=== PATIENT | female | born 1965 | race Caucasian/White ===

== ENCOUNTER 2017-08-29 10:50 | Inpatient (IN) | payer OTHER ==
[~2017-08-29] VITALS: Ht 160 cm; Wt 63.5 kg
--- NOTE | 2017-08-29 11:09 | ED MVC/FALL/TRAUMA COMPLAINT ---
History of Present Illness General Chief Complaint: Laceration Procedure Stated Complaint: BIBA LAC Source: patient Exam Limitations: no limitations Vital Signs & Intake/Output Vital Signs & Intake/Output Vital Signs Date Time Temp Pulse Resp B/P B/P Pulse O2 O2 Flow FiO2 Mean Ox Delivery Rate 08/29 1743 84 18 154/86 99 Room Air 08/29 1446 97.6 80 18 154/77 99 Room Air 08/29 1341 98.0 86 18 180/99 98 Room Air 08/29 1054 96.0 76 15 175/104 100 Room Air Room Air Allergies Coded Allergies: Penicillins (RXN AN 08/29/17) Reconcile Medications Baclofen 10 MG TABLET 1 TAB PO TID muscle aches (Reported) Nitrofurantoin Macrocrystal (Nitrofurantoin) 50 MG CAPSULE 1 CAP PO DAILY prophylaxis uti (Reported) Oxybutynin Chloride 5 MG TABLET 1 TAB PO BID bladder (Reported) Paroxetine HCl 20 MG TABLET 1 TAB PO DAILY mental health (Reported) Triage Note: PT BIBA FROM [place] S/P FALL WITH LAC TO R FOOT AND L FOOT. PT IS PARALYZED FROM CHEST DOWN AND FELL IN SHOWER THIS MORNING. DENIES LOC OR HIT TO HEAD. NEITHER LAC NOTED IN TRIAGE DUE TO EMS DRESSINGS. PT TAKEN TO ROOM 2 FROM TRIAGE. SLIGHTLY HYPERTENSIVE IN TRIAGE. Triage Nurses Notes Reviewed? yes HPI: 52 yo F PMH T1DM, Transverse Myelitis (c/b BLE paralysis, neurogenic bladder) presenting with lacerations s/p fall. Patient was getting out of the shower, transferring to wheelchair, slipped and fell forward onto bilateral knees, helped back into chair by daughter, noted blood coming from bilateral feet, found to have lacerations to ventral surface of right great toe and left 2nd toe , unclear source of laceration. C/O bilateral foot pain, left knee pain, denies head/neck strike, headache, neck pain, N/V, abdominal pain, or focal neurologic Sx. Unknown last tetanus. (Rhiannon SALINAS,Mykel) Past History Travel History Traveled to [place] past 21 day No Medical History Any Pertinent Medical History? 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 Yes (Mykel Jurado MD) Review of Systems Review of Systems Constitutional: Reports: no symptoms. Eyes: Reports: no symptoms. Ears, Nose, Throat, Mouth: Reports: no symptoms. Respiratory: Reports: no symptoms. Cardiovascular: Reports: no symptoms. Gastrointestinal/Abdominal: Reports: no symptoms. Genitourinary: Reports: no symptoms. Musculoskeletal: Reports: see HPI. Skin: Reports: no symptoms. Neurological/Psychological: Reports: no symptoms. All Other Systems: Reviewed and Negative (Mykel Jurado MD) Physical Exam Physical Exam General Appearance: well developed/nourished, no apparent distress, alert, awake Head: atraumatic Eyes: Bilateral: PERRL, EOMI. Ears, Nose, Throat, Mouth: moist mucous membrane Neck: normal inspection, full range of motion, no midline tenderness Respiratory: normal breath sounds, no respiratory distress, lungs clear Cardiovascular: regular rate/rhythm, normal peripheral pulses Gastrointestinal: soft, non-tender Comments: Right Foot: TTP over distal foot/medial toes with ecchymosis, deep curvilinear laceration to ventral surface of right great toe, pain with passive ROM, 2+ DP pulse Left Foot: Superficial laceration to ventral surface of 2nd toe, TTP over great toe, 2+ DP pulse Left Ankle: TTP over left anterior ankle joint Left Knee: Effusion with echymosis, anterior abrasion, TTP and pain with passive ROM Core Measures ACS in differential dx? No CVA/TIA Diagnosis No Sepsis Present: No Sepsis Focused Exam Completed? No (Mykel Jurado MD) Progress Differential Diagnosis: aoritic dissection, abd injury, C/T/L spine injury, ext injury, ICH, pelvis injury, pnemothorax, spinal cord injury Plan of Care: Orders Procedure Date/time Status Consistent Carbohydrate 3 08/30 B Active BASIC ELECTROLYTES PLUS BUN&CR 08/30 0600 Active Intake & Output 08/29 1813 Active ED- NURSING MISC 08/29 1740 Active FingerStick- Glucose 08/29 1718 Active Pathway - chart 08/29 1716 Active Code Status 08/29 1716 Active Patient Data 08/29 1547 Active Admit to inpatient 08/29 1540 Active PROTHROMBIN TIME 08/29 1356 Complete CBC WITHOUT DIFFERENTIAL 08/29 1356 Complete BASIC METABOLIC PANEL 08/29 1356 Complete Current Medications Sig/Mercedes Start time Last Medication Dose Stop Time Status Admin Nitrofurantoin 50 MG DAILY 08/30 0900 AC (Macrodantin 50MG 08/31 0859 Cap) Paroxetine HCl 20 MG DAILY 08/30 0900 AC (Paxil) Insulin Aspart 0 TIDAC 08/30 0800 AC (NovoLOG) Heparin Sodium 5,000 UNIT Q8 08/29 2200 AC (Porcine) Baclofen 10 MG TID 08/29 2100 AC (Lioresal 10MG Tablet) Oxybutynin Chloride 5 MG BID 08/29 2100 AC (Ditropan) Cefazolin Sodium 1,000 MG IQ8 08/29 1600 AC 08/29 (Kefzol-Ancef Inj) 1539 Laboratory Tests 08/29/17 1448: Anion Gap 13, Estimated GFR > 60, BUN/Creatinine Ratio 30.0 H, Glucose 145 H, Calcium 9.1, PT 10.8, INR 0.99, CBC w Diff NO MAN DIFF REQ, RBC 4.20, MCV 86.4, MCH 28.7, MCHC 33.2, RDW 14.6 H, MPV 8.1, Gran % 75.9 H, Lymphocytes % 18.6 L , Monocytes % 4.8, Eosinophils % 0.5, Basophils % 0.2, Absolute Granulocytes 7.6 H, Absolute Lymphocytes 1.9, Absolute Monocytes 0.5, Absolute Eosinophils 0.1, Absolute Basophils 0 Physician MDM: 52 yo F PMH T1DM, Transverse Myelitis (c/b BLE paralysis, neurogenic bladder) presenting with lacerations s/p fall. VSS, trauma exam as above. DDx: Laceration, Tendon injury, Toe Fracture, Knee ligamentous injury, Knee fracture. I suspect that these lacerations are the result of hyperextension of the toes with splitting of the skin. I will obtain XRs to assess for fracture , anesthetize and explore the wound to assess for tendinous injury, as the patient has paraplegia and I cannot preform a motor exam. The patient states that she has reduced sensation in her lower extremties, but does feel some pain. Tdap given. Right foot XR with " Mildly displaced comminuted fracture involving the mid to distal first right metatarsal, Nondisplaced fracture involving the metadiaphysis, proximal aspect, of the proximal phalanx of the great toe." Given large laceration, with deep extension and concern for open fracture, discussed with Dr. Maria (Podaitry), willing to evaluate patient this evening and explore wound, possible wash out in OR, recommended ancef q8hrs, admission. Left foot XR with "irregularity of the medial and lateral cortices of the distal first metatarsal and proximal phalanx", Dr. Maria aware. Left Knee XR with "Oblique fracture in the upper tibial diaphysis which is suspected to extend into the metaphysis and possibly to the articular surface of the knee joint. Suprapatellar joint effusion." Discussed with Dr. Metz, reccomended posterior leg splint, surgical PA evaluation. Discussed wt surgical PA, requested left knee immobilizer, will evaluate this evening. Admit for IV abx pending podiatry and orthopedics evaluation. (Rhiannon SALINAS,Mykel) Departure Departure Disposition: STILL A PATIENT Condition: Stable Clinical Impression Primary Impression: Bilateral great toe fractures Secondary Impressions: Left tibial fracture Departure Forms: Customer Survey General Discharge Information Admission Note Spoke With: Shamika SALINAS,Cheikh Documentation of Exam: Documentation of any treatments & extenuating circumstances including Concerns Regarding Discharge (functional status, medication knowledge or non-compliance, living conditions, etc.) that warrant an admission rather than observation: [ Patient presents with multiple fractures of bilateral LE s/p fall with open right 1st phalanx fracture, she requires admission to the hospital for ongoing antibiotics, podiatry consult, orthopedics consultm, PT/OT evaluationand disposition planning, if discharged without appropriate care the patient would likely have progressive displacement of fractures and developement of infection site leading to significant morbidity and possibly ] (Rhiannon SALINAS,Mykel) PA/ELECTROPLATING TECHNICIAN Co-Sign Statement Statement: ED Attending supervision documentation- [] I saw and evaluated the patient. I have also reviewed all the pertinent lab results and diagnostic results. I agree with the findings and the plan of care as documented in the PA's/ELECTROPLATING TECHNICIAN's documentation. [] I have reviewed the ED Record and agree with the PA's/ELECTROPLATING TECHNICIAN's documentation. [] Additions or exceptions (if any) to the PAs/ELECTROPLATING TECHNICIAN's note and plan are summarized below: [] Resident Co-Sign Statement Statement: ED Attending supervision documentation- I saw and evaluated the patient. I have also reviewed all the pertinent lab results and diagnostic results. I agree with the findings and the plan of care as documented in the Resident's documentation. x I have reviewed the ED Record and agree with the Resident's documentation. [] Additions or exceptions (if any) to the Resident's note and plan are summarized below: [] (Rachelle SALINAS,Brad)
--- NOTE | 2017-08-29 13:55 | RADIOLOGY REPORT ---
EXAMINATION: XR LEFT ANKLE XR LEFT FOOT CLINICAL INFORMATION: Fall and pain. Assess for fracture. The patient is paraplegic. COMPARISON: None. TECHNIQUE: AP, lateral and mortise views of the left ankle were obtained. AP, lateral and oblique views of the left foot were obtained. FINDINGS: Left ankle: There is normal alignment of the osseous structures. No fractures are demonstrated. The mortise of ankle joint is maintained. Bone mineralization is diffusely decreased. There is moderate soft tissue swelling along the lateral aspect of the distal lower extremity and ankle. There are no radiodense foreign bodies. Left foot: There is irregularity of the distal shaft of the first metatarsal medially and laterally,, with similarly irregularity of the proximal aspect of the proximal phalanx of the great toe. There is associated soft tissue swelling around the MP region of the first and second toes. These findings are consistent with minimally displaced fractures. There are no definite other fractures. The bones are diffusely osteopenic. Elsewhere, there is normal alignment of the osseous structures. There are no radiodense foreign bodies. IMPRESSION: 1. There is soft tissue swelling along the lateral aspect of the ankle. No acute ankle fractures are demonstrated. 2. There is irregularity of the medial and lateral cortices of the distal first metatarsal and proximal phalanx of the great toe as described above, consistent with minimally displaced fractures. 3. Bone mineralization is diffusely decreased; the patient is paraplegic.
--- NOTE | 2017-08-29 14:21 | RADIOLOGY REPORT ---
EXAMINATION: XR FOOT, RIGHT CLINICAL INFORMATION: Injury COMPARISON: None TECHNIQUE: AP, lateral, and oblique views of the right foot. FINDINGS: Diffuse osteopenia limits assessment for nondisplaced fracture. There is a mildly comminuted displaced fracture involving the mid to distal first metatarsal of the right foot. There is no definite extension of the fracture line to the articular surface. Motion on the lateral view limits assessment. There are several cortical discontinuity is at the base of the proximal phalanx of the great toe suspicious for nondisplaced fracture. This is at the level of the proximal metadiaphysis. The distal phalanx appears intact on the provided views. No other fractures identified. IMPRESSION: 1. Challenging examination secondary to diffuse osteopenia. 2. Mildly displaced comminuted fracture involving the mid to distal first right metatarsal. 2. Nondisplaced fracture involving the metadiaphysis, proximal aspect, of the proximal phalanx of the great toe.
--- NOTE | 2017-08-29 14:22 | RADIOLOGY REPORT ---
EXAMINATION: XR KNEE, LEFT CLINICAL INFORMATION: Pain after fall. COMPARISON: None TECHNIQUE: Four views of the left knee. FINDINGS: There is a lucency in the upper diaphyseal portion of the tibia which is suspected to represent a nondisplaced fracture. There is also some angulation at the diametaphyseal junction medially. It is indeterminate as to whether this fracture extends to the articular surface as well superiorly. No dislocation is seen. There is mild medial compartment joint space narrowing. A suprapatellar joint effusion is visible. There is bony demineralization. IMPRESSION: Oblique fracture in the upper tibial diaphysis which is suspected to extend into the metaphysis and possibly to the articular surface of the knee joint. Suprapatellar joint effusion. Generalized bony demineralization. A CT scan of the knee is recommended in follow-up to better characterize these findings.
[2017-08-29 14:57] LABS: ABSOLUTE BASOPHIL COUNT 0 /CUMM (0.0-0.2); ABSOLUTE EOSINOPHIL COUNT 0.1 /CUMM (0.0-0.7); ABSOLUTE GRANULOCYTE CT 7.6 /CUMM (1.4-6.5); ABSOLUTE LYMPH COUNT 1.9 /CUMM (1.2-3.4); ABSOLUTE MONOCYTE COUNT 0.5 /CUMM (0.10-0.60); BASOPHIL % 0.2 % (0.0-2.0); EOSINOPHIL % 0.5 % (0-5); GRANULOCYTE % 75.9 % (42.2-75.2); HEMATOCRIT 36.3 % (37-47); MEAN CORPUSCULAR HGB 28.7 PG (27.0-31.0); MEAN CORPUSCULAR HGB CONC 33.2 G/DL (33.0-37.0); MEAN CORPUSCULAR VOLUME 86.4 FL (81.0-99.0); MEAN PLATELET VOLUME 8.1 FL (7.4-10.4); PLATELET COUNT 378 /CUMM (130-400); RBC DISTRIBUTION WIDTH 14.6 % (11.5-14.5)
[2017-08-29 15:04] LABS: PT 10.8 SEC (9.4-12.5)
--- NOTE | 2017-08-29 16:29 | History & Physical ---
Attila SALINAS,[facility] 08/29/17 1628: General Information and HPI MD Statement: I have seen and personally examined DANIELLE ALVAREZ and documented this H&P. The patient is a 52 year old F who presented with a patient stated chief complaint of [fall]. 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 She presented to [facility] with a complaint of fall. The patient is visiting [place] from [place] with her daughter for [employer]. The patient has a power chair which she usually uses to ambulate. She went to take a shower and was transferred herself from power chair to the shower bench. She is followed and handed off on her knees and hands in the shower. Her daughter came out to help her. she felt Mild pain in her left knee. The patient daughter noticed her feet for bleeding especially the right one. Patient thought her feet might have gotten tangled in foot rest of wheelchair hence resulted in bleeding she did not feel any pain. Of note patient has history of transverse mellitus. And has decreased sensation bilaterally. Respiratory mechanical. She did not have any loss of consciousness. She did not hit her head. She denies any prodromal symptoms of nausea, palpitations chest pain or shortness of breath. There was no fecal or urinary incontinence. There was no seizure-like activity. Of note patient is on incontinent at baseline. She uses self-catheterization to empty her bladder and suppositories for stool. 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 Home Who Do You Live With? spouse, child Primary Language: Korean Smoking Status: Former Smoker ETOH Use: denies use Illicit Drug Use: denies illicit drug use Review of Systems Review of Systems Constitutional: Reports: see HPI. Exam & Diagnostic Data Last 24 Hrs of Vital Signs/I&O Vital Signs Date Time Temp Pulse Resp B/P B/P Pulse O2 O2 Flow FiO2 Mean Ox Delivery Rate 08/29 1934 98.0 93 18 160/88 100 Room Air 08/29 1743 84 18 154/86 99 Room Air 08/29 1446 97.6 80 18 154/77 99 Room Air 08/29 1341 98.0 86 18 180/99 98 Room Air 08/29 1054 96.0 76 15 175/104 100 Room Air Room Air Intake & Output 08/29 1600 08/29 0800 08/29 0000 Intake Total Output Total Balance Patient 140 lb Weight Weight Estimated Measurement Method Physical Exam General Appearance Alert, Oriented X3, Cooperative Cardiovascular Normal S1, Normal S2 Lungs Clear to Auscultation, Normal Air Movement Abdomen Normal Bowel Sounds, Soft, No Tenderness Neurological Normal Speech Extremities R foot wrappe din bandage Body Front and Back (Adult) 1) 2) swelling Last 24 Hrs of Labs/Estevan: Laboratory Tests 08/29/17 1448: Anion Gap 13, Estimated GFR > 60, BUN/Creatinine Ratio 30.0 H, Glucose 145 H, Calcium 9.1, PT 10.8, INR 0.99, CBC w Diff NO MAN DIFF REQ, RBC 4.20, MCV 86.4, MCH 28.7, MCHC 33.2, RDW 14.6 H, MPV 8.1, Gran % 75.9 H, Lymphocytes % 18.6 L , Monocytes % 4.8, Eosinophils % 0.5, Basophils % 0.2, Absolute Granulocytes 7.6 H, Absolute Lymphocytes 1.9, Absolute Monocytes 0.5, Absolute Eosinophils 0.1, Absolute Basophils 0 Diagnostic Data Other Results XR KNEE, LEFT Oblique fracture in the upper tibial diaphysis which is suspected to extend into the metaphysis and possibly to the articular surface of the knee joint. Suprapatellar joint effusion. Generalized bony demineralization. A CT scan of the knee is recommended in follow-up to better characterize these findings XR LEFT ANKLE XR LEFT FOOT IMPRESSION: 1. There is soft tissue swelling along the lateral aspect of the ankle. No acute ankle fractures are demonstrated. 2. There is irregularity of the medial and lateral cortices of the distal first metatarsal and proximal phalanx of the great toe as described above, consistent with minimally displaced fractures. 3. Bone mineralization is diffusely decreased; the patient is paraplegic. XR FOOT, RIGHT IMPRESSION: 1. Challenging examination secondary to diffuse osteopenia. 2. Mildly displaced comminuted fracture involving the mid to distal first right metatarsal. 2. Nondisplaced fracture involving the metadiaphysis, proximal aspect, of the proximal phalanx of the great toe. 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 She presented to [facility] 09/16 with a complaint of fall. Vitals, within normal limits except elevated blood pressure CBC and BMP unremarkable Imaging finding positive for following fractures 1.Nondisplaced fracture involving the metadiaphysis, proximal aspect, of the proximal phalanx of the R great toe. 2.Mildly displaced comminuted fracture involving the mid to distal first right metatarsal. 3.There is irregularity of the medial and lateral cortices of the distal first metatarsal and proximal phalanx of the L great toe as described above, consistent with minimally displaced fractures. 4.Oblique fracture in the L upper tibial diaphysis which is suspected to extend into the metaphysis and possibly to the articular surface of the knee joint. 5.Suprapatellar joint effusion The patient is being admitted to general medicine floor and was being treated and evaluated for above-mentioned fractured -Admit to general medicine floor -Vitals every shift -Adequate analgesia -Podiatry consult -Ortho Consult -Case has been discussed with Dr. Maria bottom worker he will be taking her OR on Thursday for a washout and closure. -IV antibiotics -Ortho. This is most likely going to recommend conservative management however we'll place an official consult, for follow-up after discharge as well #Continue home medications baclofen, Paxil, nitrofurantoin (chronically on to prevent UTIs), oxybutynin #DM, Pt is on insulin pump, we will hold for now and start patient on insulin sliding scale -Endo consult #Full Code/consistent carbohydrate diet/subcutaneous heparin for DVT prophylaxis alps will not be ordered in setting of fracture As Ranked By This Provider Problem List: 1. Left tibial fracture Core Measures/Misc (12/14) Acute Coronary Syndrome ACS Diagnosis: No Congestive Heart Failure Congestive Heart Failure Diagnosis No Cerebrovascular Accident CVA/TIA Diagnosis: No VTE (View Protocol) VTE Risk Factors Age>40 No Mechanical VTE Prophylaxis d/t Medical Contraindication No VTE Pharm Prophylaxis d/t NA PharmProphylax ordered Sepsis (View protocol) Sepsis Present: Yes If YES complete Sepsis Event Note If YES complete Sepsis Event Note Natalie Morton 08/29/17 1647: Core Measures/Misc (12/14) Sepsis (View protocol) If YES complete Sepsis Event Note If YES complete Sepsis Event Note Resident Review Statement Resident Statement: discussed with underwriting intern, agreed with underwriting intern Other Findings: Patient is a 52 year old female with PMH T1DM, Transverse Myelitis (c/b BLE paralysis, neurogenic bladder) who came with lacerations after a fall. Patient states that she fell forward while she was getting out of the shower into her wheelchair when she noted blood coming out of her right great toe. She had right foot x-ray which was significant for fracture of right big toe, her left knee x-ray is significant for oblique tibial fracture and her left ankle x-ray is significant for iregularity of the medial and lateral cortices of the distal first metatarsal and proximal phalanx of the great toe. She will be admitted to general medicine floor for possible surgery of her right big toe later today by Dr. Maria, we will keep her n.p.o. for the surgery, give her cefazolin 1000 mg every 8 per podiatry's recommendations. For her diabetes, will start her on NovoLog insulin low-dose scale, and obtain fingersticks. The plan is that patient will be discharged tomorrow. With follow-up orthopedics recommendation. DVT prophylaxis with subcutaneous heparin as patient cannot get ALPS. Patient is full code. WuYao ballard 08/29/17 1657: General Information and HPI Allergies/Medications Home Med list Baclofen 10 MG TABLET 1 TAB PO TID muscle aches (Reported) Insulin Aspart (Novolog) 100 UNIT/ML VIAL 0 SC DAILY DM (Reported) VIA INSULIN PUMP Nitrofurantoin Macrocrystal (Nitrofurantoin) 50 MG CAPSULE 1 CAP PO DAILY prophylaxis uti (Reported) Oxybutynin Chloride 5 MG TABLET 1 TAB PO BID bladder (Reported) Paroxetine HCl 20 MG TABLET 1 TAB PO DAILY mental health (Reported) Core Measures/Misc (12/14) Sepsis (View protocol) If YES complete Sepsis Event Note If YES complete Sepsis Event Note Attending MD Review Statement Attending Statement Attending MD Statement: examined this patient, discuss w/resident/PA/LIBRARY CIRCULATION DEPARTMENT CHIEF, agreed w/resident/PA/LIBRARY CIRCULATION DEPARTMENT CHIEF, reviewed EMR data (avail) Attending Assessment/Plan: 52 yr old female with pmf of transverse myelitis in 1987 and paraplegic secondary to that and wheel chair bound presented to the ER after a fall while getting from the wheel chair into the shower. Pt found to have fracture of rt first metatarsal, Fracture of the proximal phalynx of the great toe and left tibial fracture. Orhto recommending conservative treatment for tibial fracutre with knee immobilizer. Podiatry taking her to OR on thursday for repair of the laceration to the feet and washout of the wounds. d/w pt and Dr Maria the care plan.
[2017-08-29] MEDS ORDERED: PAROXETINE HCL20 M1 PO (16:35)
[2017-08-29] MEDS ORDERED: BACLOFEN10 M1 PO (16:35)
[2017-08-29] MEDS ORDERED: NITROFURANTOIN50 M1 PO (16:35)
[2017-08-29] MEDS ORDERED: OXYBUTYNIN CHLOR5 M2 PO (16:35)
--- NOTE | 2017-08-29 16:56 | Admission Certification ---
Admission Certification Certification Statement - As attending physician, I certify that at the time of - admission, based on clinical presentation, severity of - symptoms, need for further diagnostic testing and - therapeutic interventions, and risk of adverse outcomes - without in-hospital treatment, in my clinical assessment, - this patient requires an acute hospital stay for a minimum - of two nights or longer. I have also considered psychsocial - factors such as support system, advanced age, financial - issues, cognitive issues, and failed out-patient treatments, - past re-admission history, safety of patient, and lack of - compliance as applicable. Specific rationale supporting this admission is: fall with tibial fracture and metatarsal and distal phalynx fracture of the great toe.
--- NOTE | 2017-08-29 17:40 | Cons- Podiatry ---
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 Patient was noted to have a laceration to her right foot and also complaining of left knee and ankle pain. Allergies/Medications Allergies: Coded Allergies: Penicillins (RXN AN 08/29/17) Home Med List: Baclofen 10 MG TABLET 1 TAB PO TID muscle aches (Reported) Nitrofurantoin Macrocrystal (Nitrofurantoin) 50 MG CAPSULE 1 CAP PO DAILY prophylaxis uti (Reported) Oxybutynin Chloride 5 MG TABLET 1 TAB PO BID bladder (Reported) Paroxetine HCl 20 MG TABLET 1 TAB PO DAILY mental health (Reported) Past History Medical History Neurological: PARALYZED FROM CHEST DOWN Renal: URINARY RETENTION NEUROGENIC BOWEL & BLADDE Musculoskeletal: TRANSVERSE MIOLYTIS Endocrine: DIABETES TYPE 1 Blood Disorders: NONE Cancer(s): NONE 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 Surgical History Pertinent Surgical History: 1 Psychosocial History ETOH Use: denies use Illicit Drug Use: denies illicit drug use Review of Systems Review of Systems: Unremarkable except for that noted in history present illness Exam & Diagnostic Data Vital Signs and I&O Vital Signs Date Time Temp Pulse Resp B/P B/P Pulse O2 O2 Flow FiO2 Mean Ox Delivery Rate 08/29 1446 97.6 80 18 154/77 99 Room Air 08/29 1341 98.0 86 18 180/99 98 Room Air 08/29 1054 96.0 76 15 175/104 100 Room Air Room Air Intake & Output 08/29 1600 08/29 0800 08/29 0000 08/28 1600 08/28 0800 08/28 0000 Intake Total Output Total Balance Patient 140 lb Weight Weight Estimated Measurement Method Physical Exam: Edema and ecchymosis noted about the right foot. There is a transversely oriented laceration to the plantar sulcus of the first metatarsophalangeal joint. No obvious contaminants or debris identified within the wound bed. Unable to visualize the flexor hallucis longus tendon, however given the patient 's motor deficit its difficult to assess the integrity of the tendon. Superficial laceration noted at the plantar sulcus of the second metatarsophalangeal joint left foot. Patient is noted to have deficits involving both the sensory motor functions to bilateral lower extremities. X- rays demonstrate fracture of the first metatarsal head right and a transversely oriented fracture through the base of the proximal phalanx of the right great toe. Tibial fracture also noted on x-ray, which is to be managed by the orthopedic service. Assessment/Plan Assessment/Plan Open digital fracture right great toe. Recommend IV antibiotics while on the floor. Discussed options with the patient at bedside and agreed to take the patient to the OR on Thursday for a washout and closure. Consult Acknowledgment - Thank you for your consult request. Attending MD Review Statement Attending Statement Attending MD Statement: examined this patient
--- NOTE | 2017-08-29 18:20 | Cons- Orthopedic ---
General Information and HPI Consulting Request Date of Consult: 08/29/17 Requested By: Yao Wu MD Reason for Consult: Proximal tibia fracture Source of Information: patient Exam Limitations: no limitations History of Present Illness: Patient is a 52 year old female with PMH T1DM, Transverse Myelitis (c/b BLE paralysis, neurogenic bladder) who came with lacerations after a fall. Patient states that she fell forward while she was getting out of the shower into her wheelchair when she noted blood coming out of her right great toe. She had right foot x-ray which was significant for fracture of right big toe, her left knee x-ray is significant for oblique tibial fracture and her left ankle x-ray is significant for iregularity of the medial and lateral cortices of the distal first metatarsal and proximal phalanx of the great toe. Allergies/Medications Allergies: Coded Allergies: Penicillins (RXN AN INFANT 08/29/17) Home Med List: Baclofen 10 MG TABLET 1 TAB PO TID muscle aches (Reported) Nitrofurantoin Macrocrystal (Nitrofurantoin) 50 MG CAPSULE 1 CAP PO DAILY prophylaxis uti (Reported) Oxybutynin Chloride 5 MG TABLET 1 TAB PO BID bladder (Reported) Paroxetine HCl 20 MG TABLET 1 TAB PO DAILY mental health (Reported) Past History Medical History Neurological: PARALYZED FROM CHEST DOWN Renal: URINARY RETENTION NEUROGENIC BOWEL & BLADDE Musculoskeletal: TRANSVERSE MIOLYTIS Endocrine: DIABETES TYPE 1 Blood Disorders: NONE Cancer(s): NONE 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 Surgical History Pertinent Surgical History: 1 Psychosocial History ETOH Use: denies use Illicit Drug Use: denies illicit drug use Exam & Diagnostic Data Vital Signs and I&O Vital Signs Date Time Temp Pulse Resp B/P B/P Pulse O2 O2 Flow FiO2 Mean Ox Delivery Rate 08/29 1743 84 18 154/86 99 Room Air 08/29 1446 97.6 80 18 154/77 99 Room Air 08/29 1341 98.0 86 18 180/99 98 Room Air 08/29 1054 96.0 76 15 175/104 100 Room Air Room Air Intake & Output 08/29 1600 08/29 0800 08/29 0000 06/ 1600 08/28 0800 08/28 0000 Intake Total Output Total Balance Patient 140 lb Weight Weight Estimated Measurement Method Physical Exam: Left lower extremity: Positive left knee effusion Left calf compartments soft Distal sensation intact, No deformity noted Assessment/Plan Assessment/Plan Ms. Mccallum is a 52-year-old female, status post fall at a home in the area were she was visiting from [place], sustained an open fracture to her right foot and left proximal tibia fracture. She will be taken to the operating room by podiatry for her right foot injuries. Her left proximal tibia will be placed in a knee immobilizer at this time. She should not have knee flexion, and should be nonweightbearing on this left limb. Ice to left knee and proximal left tibia should help with swelling and pain. The patient states she will be leaving back to [place] which is her home tomorrow, and there she should follow-up with an orthopedic surgeon with in the week for follow-up x-rays. No surgical intervention for the left proximal tibia is necessary at this time. This case was discussed with Dr. Metz who is aware and is in agreement. Orthopedic concerns while here at [facility] should be directed to Dr. Metz at [facility] Consult Acknowledgment - Thank you for your consult request.
[2017-08-29 19:34] VITALS: BP 160/88
--- NOTE | 2017-08-29 21:44 | Event Note ---
Event Note Event Note: S: Patient was admitted to general medicine floor without being advised to take off the insulin pump. Patient was eating outside food brought in by her family for dinner, due to Cafe was closed for service. Patient was concerned regarding switching her usual insulin pump regimen as she was allowed to do so in previous hospitalization. Patient was never seen here in [place] as she was visiting from [place]. B: The patient is 52-year-old female with 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 She presented to [facility] ED 09/16 with a complaint of fall. Imaging finding positive for following fractures 1.Nondisplaced fracture involving the metadiaphysis, proximal aspect, of the proximal phalanx of the R great toe. 2.Mildly displaced comminuted fracture involving the mid to distal first right metatarsal. 3.There is irregularity of the medial and lateral cortices of the distal first metatarsal and proximal phalanx of the L great toe as described above, consistent with minimally displaced fractures. 4.Oblique fracture in the L upper tibial diaphysis which is suspected to extend into the metaphysis and possibly to the articular surface of the knee joint. 5.Suprapatellar joint effusion A/R: Housestaffs were notified and have a detailed discussion regarding the necessarity of discontinuing the home insulin pump and hospital policy of using inpatient insulin sliding scale/AccuChek to have precise control of blood sugar. Patient's concern was addressed and agreed to discontinue home insulin pump and be compliant with inpatient insulin sliding scale/accuchek. Patient's medication list was also reconciliated to make sure all her other home meds was given as scheduled. - As a T1DM patient pending OR on thursday, patient would need an Endocrinology consult for sugar control. Continuous Improvement Facilitator psychological operations specialist was contacted and pending call-back. - FSG [phone] was [phone]. Patient has not got her insulin pump bolus after dinner ( outside food). 10:01 PM The patient confirmed that she takes 29 units of basal insulin/per 24 hours, and boluses accordingly. Discussed with Dr. Wilson and started her on Levemir 15 units twice a day, with the first dose to be given right now. Also gave her a corrective insulin of 3 units NovoLog, since she did not get her insulin at dinnertime. discussed with the patient about the change in insulin regimen, and she agrees. Recheck blood glucose in 2 hours. Also a separate insulin sliding scale was written, as per Dr. Wilson's recommendation. Explained to the patient, that she cannot keep her insulin pump on while she is in the hospital, which can be a safety issue. Discussed it with the nurse was taking care of the patient, and informed her about the insulin dosing changes.
[2017-08-29 22:20] VITALS: BP 160/85
[2017-08-30 06:54] VITALS: BP 110/55
--- NOTE | 2017-08-30 08:43 | PN- Housestaff ---
See Addendum Subjective Follow-up For: FAll Multiple fractures Subjective: Patient is seen and examined. Resting comfortably. Overnight there was an ongoing problem with an insulin pump however patient has agreed to be on hospital regimen. She will be nothing by mouth tonight for anticipated procedure in the morning with Dr. Maria Review of Systems Constitutional: Reports: see HPI. Objective Last 24 Hrs of Vital Signs/I&O Vital Signs Date Time Temp Pulse Resp B/P B/P Pulse O2 O2 Flow FiO2 Mean Ox Delivery Rate 08/30 0654 99.4 100 18 110/55 98 Room Air 08/29 2220 98.1 92 20 160/85 100 Room Air 06/ 1934 98.0 93 18 160/88 100 Room Air 08/29 1743 84 18 154/86 99 Room Air / 1446 97.6 80 18 154/77 99 Room Air / 1341 98.0 86 18 180/99 98 Room Air Intake & Output 08/30 1600 08/30 0800 08/30 0000 Intake Total 510 490 Output Total 1200 Balance 510 -710 Intake, IV 30 10 Intake, Oral 480 480 Number 0 0 Bowel Movements Output, Urine 1200 Patient 140 lb Weight Physical Exam General Appearance: Alert, Oriented X3, Cooperative Other Physical Findings: Cardiovascular Normal S1, Normal S2 Lungs Clear to Auscultation, Normal Air Movement Abdomen Normal Bowel Sounds, Soft, No Tenderness Neurological Normal Speech Extremities R foot wrappe din bandage Current Medications: Current Medications Sig/Mercedes Start time Last Medication Dose Route Stop Time Status Admin Acetaminophen 650 MG ONCE ONE 08/30 0530 DC 08/30 PO 08/30 0531 0540 Acetaminophen 0 .STK-MED ONE 08/29 1346 DC PO Acetaminophen 975 MG ONCE ONE 08/29 1345 DC 08/29 PO 08/29 1346 1348 Baclofen 10 MG 4 TIMES/DAY 08/30 0900 AC 08/30 PO 0855 Baclofen 10 MG ONCE ONE 08/29 2200 DC 08/29 PO 08/29 2201 2149 Baclofen 10 MG TID 08/29 2100 DC PO Bisacodyl 10 MG DAILY PRN 08/29 2200 AC 08/30 RI 0807 Cefazolin Sodium 1,000 MG IQ8 08/29 1600 AC 08/30 IV 0801 Cefazolin Sodium 0 .STK-MED ONE 08/29 1539 DC .ROUTE Heparin Sodium 5,000 UNIT Q8 08/29 2200 AC 08/29 (Porcine) SC 2149 Insulin Aspart 0 TIDAC 08/30 0800 CAN SC Insulin Aspart 0 TIDAC 08/30 0800 AC 08/30 SC 0854 Insulin Aspart 4 UNITS ONCE ONE 08/29 2345 DC 08/30 SC 08/29 2346 0036 Insulin Aspart 3 UNITS ONCE ONE 08/29 2215 DC 08/29 SC 08/29 2216 2254 Insulin Detemir 15 UNITS BID 08/30 0900 AC 08/30 SC 0854 Insulin Detemir 15 UNITS ONCE ONE 08/29 2215 DC 08/29 SC 08/29 2216 2255 Nitrofurantoin 50 MG DAILY 08/30 899 CAN PO 08/31 0859 Oxybutynin Chloride 5 MG 4 TIMES/DAY 08/30 0900 AC 08/30 PO 0854 Oxybutynin Chloride 5 MG ONCE ONE 08/29 2145 DC 08/29 PO 08/29 214 2149 Oxybutynin Chloride 5 MG BID 08/29 2100 DC PO Paroxetine HCl 20 MG DAILY 08/30 0900 DC PO Paroxetine HCl 10 MG QPM 08/29 2145 AC 08/29 PO 2150 Tetanus/Diphtheria 0 .STK-MED ONE 08/29 1346 DC Toxoids Adsorbed IM Last 24 Hrs of Lab/Estevan Results Last 24 Hrs of Labs/Mics: Laboratory Tests 08/30/17 0740: Anion Gap 8, Estimated GFR > 60, BUN/Creatinine Ratio 25.0 08/29/17 1448: Anion Gap 13, Estimated GFR > 60, BUN/Creatinine Ratio 30.0 H, Glucose 145 H, Calcium 9.1, PT 10.8, INR 0.99, CBC w Diff NO MAN DIFF REQ, RBC 4.20, MCV 86.4, MCH 28.7, MCHC 33.2, RDW 14.6 H, MPV 8.1, Gran % 75.9 H, Lymphocytes % 18.6 L , Monocytes % 4.8, Eosinophils % 0.5, Basophils % 0.2, Absolute Granulocytes 7.6 H, Absolute Lymphocytes 1.9, Absolute Monocytes 0.5, Absolute Eosinophils 0.1, Absolute Basophils 0 Assessment/Plan Assessment: The patient is 52-year-old female with 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 She presented to [facility] ED 09/16 with a complaint of fall. Vitals, within normal limits except elevated blood pressure CBC and BMP unremarkable Imaging finding positive for following fractures 1.Nondisplaced fracture involving the metadiaphysis, proximal aspect, of the proximal phalanx of the R great toe. 2.Mildly displaced comminuted fracture involving the mid to distal first right metatarsal. 3.There is irregularity of the medial and lateral cortices of the distal first metatarsal and proximal phalanx of the L great toe as described above, consistent with minimally displaced fractures. 4.Oblique fracture in the L upper tibial diaphysis which is suspected to extend into the metaphysis and possibly to the articular surface of the knee joint. 5.Suprapatellar joint effusion The patient is being admitted to general medicine floor and was being treated and evaluated for above-mentioned fractured -Vitals every shift hemodynamically stable overnight -Adequate analgesia, pain well controlled -OR on Thursday for a washout and closure. -IV antibiotics -Ortho recommend conservative management follow-up after discharge #DM, Pt is on insulin pump. Endocrinology has been consulted Patient is going to be started on the recommended regimen. She will be nothing by mouth at midnight we will run fluids and scale as per Endo #Continue home medications baclofen, Paxil, nitrofurantoin (chronically on to prevent UTIs), oxybutynin #Full Code/consistent carbohydrate diet/subcutaneous heparin for DVT prophylaxis alps will not be ordered in setting of fracture Problem List: 1. Left tibial fracture 2. Bilateral great toe fractures Pain Ratin Pain Location: fracture site Pain Goal: Pain 4 or less Pain Plan: n/a Tomorrow's Labs & Rationales: will get post op labs
--- NOTE | 2017-08-30 09:02 | Cons- Endocrinology ---
General Information and HPI Consulting Request Date of Consult: 08/30/17 Requested By: medical team Reason for Consult: uncontrolled DM type 1 Source of Information: patient Exam Limitations: no limitations History of Present Illness: This 52-year-old woman has a known history of diabetes mellitus type 1 since childhood. She was here she states on a vacation. In the hotel room when she was transferring from her wheelchair to shower bench she fell and injured her legs. She was noted to have some bleeding from the right foot. She was taken to the emergency room. The patient has been found to have a fracture of the tibia as well as bilateral fractures of the great toe in her feet. She is going to be taken to the operating room tomorrow by Dr. Maria to have foot surgery and closure of the wound on her right foot. The patient's diabetes is managed on an insulin pump. She uses the Omni pod. Her total basal is 29 units daily. She states her last hemoglobin A1c was about 8.0%. X-rays of her bones show diffuse osteopenia secondary to her paralysis and nonweightbearing. The patient has a history of transverse myelitis with paralysis of both legs and neurogenic bladder. Allergies/Medications Allergies: Coded Allergies: Penicillins (RXN AN 08/29/17) Home Med List: Baclofen 10 MG TABLET 1 TAB PO TID muscle aches (Reported) Nitrofurantoin Macrocrystal (Nitrofurantoin) 50 MG CAPSULE 1 CAP PO DAILY prophylaxis uti (Reported) Oxybutynin Chloride 5 MG TABLET 1 TAB PO BID bladder (Reported) Paroxetine HCl 20 MG TABLET 1 TAB PO DAILY mental health (Reported) Current Medications: Current Medications Sig/Mercedes Start time Last Medication Dose Route Stop Time Status Admin Acetaminophen 650 MG ONCE ONE 08/30 0530 DC 08/30 PO 08/30 0531 0540 Acetaminophen 0 .STK-MED ONE 08/29 1346 DC PO Acetaminophen 975 MG ONCE ONE 08/29 1345 DC 08/29 PO 08/29 1346 1348 Baclofen 10 MG 4 TIMES/DAY 08/30 0900 AC 08/30 PO 0855 Baclofen 10 MG ONCE ONE 08/29 2200 DC 08/29 PO 08/29 2201 2149 Baclofen 10 MG TID 08/29 2100 DC PO Bisacodyl 10 MG DAILY PRN 08/29 2200 AC 08/30 CA 0807 Cefazolin Sodium 1,000 MG IQ8 06/02 1600 AC 06 IV 0801 Cefazolin Sodium 0 .STK-MED ONE 06 1539 DC .ROUTE Heparin Sodium 5,000 UNIT Q8 / 2200 AC 08/29 (Porcine) SC 2149 Insulin Aspart 0 TIDAC 08/30 0800 CAN SC Insulin Aspart 0 TIDAC 08/30 0800 AC 08/30 SC 0854 Insulin Aspart 4 UNITS ONCE ONE 08/29 2345 DC 08/30 SC / 2346 0036 Insulin Aspart 3 UNITS ONCE ONE 08/29 2215 DC 06/ SC / 2216 2254 Insulin Detemir 15 UNITS BID 08/30 0900 AC 08/30 SC 0854 Insulin Detemir 15 UNITS ONCE ONE 08/29 2215 DC / SC 08/29 2216 2255 Lidocaine 0 .STK-MED ONE 08/29 1114 DC .ROUTE Nitrofurantoin 50 MG DAILY 08/30 0900 CAN PO 08/31 0859 Oxybutynin Chloride 5 MG 4 TIMES/DAY 08/30 0900 AC 08/30 PO 0854 Oxybutynin Chloride 5 MG ONCE ONE 08/29 2145 DC 06/ PO / 2146 2149 Oxybutynin Chloride 5 MG BID / 2100 DC PO Paroxetine HCl 20 MG DAILY 08/30 0900 DC PO Paroxetine HCl 10 MG QPM 08/29 2145 AC 06/ PO 2150 Tetanus/Diphtheria 0 .STK-MED ONE 08/29 1346 DC Toxoids Adsorbed IM Tetanus/Diphtheria 0.5 ML ONCE ONE 08/29 1130 DC 08/29 Toxoids Adsorbed IM 08/29 1131 1348 Review of Systems Review of Systems Constitutional: Denies: chills, fever. Cardiovascular: Denies: chest pain. Respiratory: Denies: short of breath. GI: Denies: nausea, vomiting. 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 Home Who Do You Live With? spouse, child Services at Home: None Primary Language: Kazakh Smoking Status: Former Smoker ETOH Use: denies use Illicit Drug Use: denies illicit drug use Exam & Diagnostic Data Last 24 Hrs of Vital Signs/I&O Vital Signs Date Time Temp Pulse Resp B/P B/P Pulse O2 O2 Flow FiO2 Mean Ox Delivery Rate 08/30 0654 99.4 100 18 110/55 98 Room Air 06/ 2220 98.1 92 20 160/85 100 Room Air 06/ 1934 98.0 93 18 160/88 100 Room Air / 1743 84 18 154/86 99 Room Air 06/ 1446 97.6 80 18 154/77 99 Room Air 06/ 1341 98.0 86 18 180/99 98 Room Air / 1054 96.0 76 15 175/104 100 Room Air Room Air Intake & Output 08/30 1600 08/30 0800 06/ 0000 Intake Total 510 490 Output Total 1200 Balance 510 -710 Intake, IV 30 10 Intake, Oral 480 480 Number 0 0 Bowel Movements Output, Urine 1200 Patient 140 lb Weight Vital Signs Date Time Temp Pulse Resp B/P B/P Pulse O2 O2 Flow FiO2 Mean Ox Delivery Rate 08/30 0654 99.4 100 18 110/55 98 Room Air 06/02 2220 98.1 92 20 160/85 100 Room Air 06/02 1934 98.0 93 18 160/88 100 Room Air / 1743 84 18 154/86 99 Room Air / 1446 97.6 80 18 154/77 99 Room Air / 1341 98.0 86 18 180/99 98 Room Air / 1054 96.0 76 15 175/104 100 Room Air Room Air Intake & Output 08/30 1600 /03 0800 06/03 0000 Intake Total 510 490 Output Total 1200 Balance 510 -710 Intake, IV 30 10 Intake, Oral 480 480 Number 0 0 Bowel Movements Output, Urine 1200 Patient 140 lb Weight Physical Exam General Appearance: alert, awake, comfortable Head: normal appearance Eyes: Bilateral: normal appearance. Neck: normal inspection Respiratory: normal breath sounds Cardiovascular: regular rate/rhythm Gastrointestinal: normal bowel sounds, soft Extremities: normal inspection Labs/Estevan Results: Laboratory Tests 08/30 08/29 0740 1448 Chemistry Sodium (137 - 145 mmol/L) 137 141 Potassium (3.5 - 5.1 mmol/L) 4.6 3.7 Chloride (98 - 107 mmol/L) 103 101 Carbon Dioxide (22 - 30 mmol/L) 26 28 Anion Gap (5 - 16) 8 13 BUN (7 - 17 mg/dL) 15 18 H Creatinine (0.5 - 1.0 mg/dL) 0.6 0.6 Estimated GFR (>60 ml/min) > 60 > 60 BUN/Creatinine Ratio (7 - 25 %) 25.0 30.0 H Glucose (65 - 99 mg/dL) 145 H Calcium (8.4 - 10.2 mg/dL) 9.1 Coagulation PT (9.4 - 12.5 SEC) 10.8 INR (0.90 - 1.19) 0.99 Hematology CBC w Diff NO MAN DIFF REQ WBC (4.8 - 10.8 /CUMM) 10.0 RBC (4.20 - 5.40 /CUMM) 4.20 Hgb (12.0 - 16.0 G/DL) 12.0 Hct (37 - 47 %) 36.3 L MCV (81.0 - 99.0 FL) 86.4 MCH (27.0 - 31.0 PG) 28.7 MCHC (33.0 - 37.0 G/DL) 33.2 RDW (11.5 - 14.5 %) 14.6 H Plt Count (130 - 400 /CUMM) 378 MPV (7.4 - 10.4 FL) 8.1 Gran % (42.2 - 75.2 %) 75.9 H Lymphocytes % (20.5 - 51.1 %) 18.6 L Monocytes % (1.7 - 9.3 %) 4.8 Eosinophils % (0 - 5 %) 0.5 Basophils % (0.0 - 2.0 %) 0.2 Absolute Granulocytes (1.4 - 6.5 /CUMM) 7.6 H Absolute Lymphocytes (1.2 - 3.4 /CUMM) 1.9 Absolute Monocytes (0.10 - 0.60 /CUMM) 0.5 Absolute Eosinophils (0.0 - 0.7 /CUMM) 0.1 Absolute Basophils (0.0 - 0.2 /CUMM) 0 Assessment/Plan Assessment/Plan This 52-year-old woman has a known history of diabetes mellitus type 1 since childhood. She is on the Omni pod i nsulin pump. According to hospital policy we need to transition her to subcu insulin. I spoke with the resident last night and since her basal on the pump is 29 units we began Levemir 15 units twice a day. We also placed her on sliding scale NovoLog before meals. I would continue the Levemir as written and also the present sliding scale NovoLog before meals.. We can also add a separate sliding scale at bedtime. Sliding scale NovoLog at bedtime should be less than 250 give no insulin, 251- 300 give 2 units NovoLog, 301-350 give 3 units NovoLog, 351-400 give 4 units NovoLog. Since the patient will be n.p.o. for surgery tomorrow we can begin D5 half- normal saline at midnight at 75 cc/h. At midnight we can also place the patient on sliding scale NovoLog every 4 hours for sugars above 150. Sliding scale NovoLog while the patient is n.p.o. should be less than 150 give no insulin, 151 -200 give 2 units NovoLog, 201-250 give 3 units NovoLog, 251-300 give 4 units NovoLog, 301-350 give 5 units NovoLog, 351-400 give 6 units NovoLog. I would reduce the patient's morning dose of Levemir tomorrow morning to 8 units while n.p.o. When the patient is eating again we should place her back on her usuall mealtime insulin schedule well as the bedtime sliding scale NovoLog and Levemir 15 units twice a day Consult Acknowledgment - Thank you for your consult request.
[2017-08-30 14:49] VITALS: BP 128/70
[2017-08-30 21:44] VITALS: BP 122/54
[2017-08-31 07:00] VITALS: BP 132/73
--- NOTE | 2017-08-31 07:30 | PN- Diabetes ---
See Addendum Assessment/Plan Diabetes Assessment: The patient feels anxious before surgery. She is presently n.p.o. and on D5 half-normal saline at 75 cc/h. Her Levemir dose has been reduced to 8 units last night and she will be covered with NovoLog insulin every 4 hours today for sugars above 150 while n.p.o. Her fingerstick blood sugar this morning is 123. Plan: Suggest continue the present insulin regimen. When the patient is eating again she should be placed back on her full dose of Levemir which is 15 units twice a day as well as the previous sliding scale before meals with a separate sliding scale at bedtime. Subjective Subjective: Feels anxious Review of Systems Constitutional: Denies: chills, fever. Cardiovascular: Denies: chest pain. Respiratory: Denies: short of breath. Gastrointestinal: Denies: abdominal pain, nausea, vomiting. Objective Last 24 Hrs of Vital Signs/I&O Vital Signs Date Time Temp Pulse Resp B/P B/P Pulse O2 O2 Flow FiO2 Mean Ox Delivery Rate 08/31 2143 98.4 83 20 122/54 96 Room Air 08/30 1449 98.1 98 18 128/70 99 Room Air Intake & Output 08/31 0808/31 0000 08/30 1600 Intake Total 800 Output Total 200 500 700 Balance -200 -500 100 Intake, Oral 800 Output, Urine 200 500 700 Vital Signs Date Time Temp Pulse Resp B/P B/P Pulse O2 O2 Flow FiO2 Mean Ox Delivery Rate 08/31 2143 98.4 83 20 122/54 96 Room Air 08/30 1449 98.1 98 18 128/70 99 Room Air Intake & Output 08/31 0808/31 0000 08/30 1600 Intake Total 800 Output Total 200 500 700 Balance -200 -500 100 Intake, Oral 800 Output, Urine 200 500 700 Physical Exam General Appearance: alert, awake, comfortable Head: normal appearance Neck: normal inspection Cardiovascular: regular rate/rhythm Extremities: normal inspection Current Medications: Current Medications Sig/Mercedes Start time Last Medication Dose Route Stop Time Status Admin Acetaminophen 1,000 MG ONCE ONE 08/30 1300 DC N/A 1 UNIT IV 08/30 1314 Acetaminophen 650 MG Q4P PRN 08/30 1300 AC 08/30 PO 2027 Baclofen 10 MG 4 TIMES/DAY 08/30 0900 AC 08/30 PO 2028 Bisacodyl 10 MG DAILY PRN 06/ 2200 AC 06 DC 0807 Cefazolin Sodium 1,000 MG IQ8 06/02 1600 AC 06 IV 0044 Dextrose/Sodium 1,000 ML Q13H 06/ 0000 AC 06/ Chloride IV 06/ 1259 0047 Heparin Sodium 5,000 UNIT Q8 / 2200 AC 08/29 (Porcine) NC 214 Insulin Aspart 0 Q4 / 0200 08/31 NC 0131 Insulin Aspart 0 TIDAC 08/30 1800 DC 08/30 NC 08/30 2355 1749 Insulin Aspart 0 TIDAC/HS 08/30 1700 DC NC 08/30 2300 Insulin Aspart 0 TIDAC 08/30 0800 DC 08/30 NC 08/30 2300 1227 Insulin Detemir 8 UNITS ONCE ONE 08/31 0800 [facility] 08/31 0801 Insulin Detemir 15 UNITS BID 08/30 0900 FL 08/30 NC 08/30 2300 202 Oxybutynin Chloride 5 MG 4 TIMES/DAY / 0900 AC 08/30 PO 2027 Paroxetine HCl 10 MG QPM 06/ 2145 AC 08/30 PO 202 Current Medications Sig/Mercedes Start time Last Medication Dose Route Stop Time Status Admin Acetaminophen 1,000 MG ONCE ONE 08/30 1300 DC N/A 1 UNIT IV 08/30 1314 Acetaminophen 650 MG Q4P PRN 06/03 1300 AC 08/30 PO 202 Baclofen 10 MG 4 TIMES/DAY / 0900 AC 08/30 PO 202 Bisacodyl 10 MG DAILY PRN 06 2200 AC 08/30 DC 0807 Cefazolin Sodium 1,000 MG IQ8 06/02 1600 AC 06/04 IV 0044 Dextrose/Sodium 1,000 ML Q13H 06/ 0000 AC / Chloride IV / 1259 0047 Heparin Sodium 5,000 UNIT Q8 08/29 2200 08/29 (Porcine) NC 214 Insulin Aspart 0 Q4 06/04 0200 08/31 NC 0131 Insulin Aspart 0 TIDAC / 1800 DC 08/30 NC 08/30 2355 1749 Insulin Aspart 0 TIDAC/HS /03 1700 [facility] 08/30 2300 Insulin Aspart 0 TIDAC 08/30 0800 DC 08/30 NC 08/30 2300 1227 Insulin Detemir 8 UNITS ONCE ONE 08/31 08 AC NC 08/31 08 Insulin Detemir 15 UNITS BID 08/30 09 DC 08/30 NC 08/30 Oxybutynin Chloride 5 MG 4 TIMES/DAY 08/30 899 AC 08/30 PO 2027 Paroxetine HCl 10 MG QPM 08/29 2144 AC 08/30 PO 2027 Findings Pertinent Lab/Est[place]an Results: Laboratory Tests 08/30 08/29 0740 1448 Chemistry Sodium (137 - 145 mmol/L) 137 141 Potassium (3.5 - 5.1 mmol/L) 4.6 3.7 Chloride (98 - 107 mmol/L) 103 101 Carbon Dioxide (22 - 30 mmol/L) 26 28 Anion Gap (5 - 16) 8 13 BUN (7 - 17 mg/dL) 15 18 H Creatinine (0.5 - 1.0 mg/dL) 0.6 0.6 Estimated GFR (>60 ml/min) > 60 > 60 BUN/Creatinine Ratio (7 - 25 %) 25.0 30.0 H Glucose (65 - 99 mg/dL) 145 H Calcium (8.4 - 10.2 mg/dL) 9.1 Coagulation PT (9.4 - 12.5 SEC) 10.8 INR (0.90 - 1.19) 0.99 Hematology CBC w Diff NO MAN DIFF REQ WBC (4.8 - 10.8 /CUMM) 10.0 RBC (4.20 - 5.40 /CUMM) 4.20 Hgb (12.0 - 16.0 G/DL) 12.0 Hct (37 - 47 %) 36.3 L MCV (81.0 - 99.0 FL) 86.4 MCH (27.0 - 31.0 PG) 28.7 MCHC (33.0 - 37.0 G/DL) 33.2 RDW (11.5 - 14.5 %) 14.6 H Plt Count (130 - 400 /CUMM) 378 MPV (7.4 - 10.4 FL) 8.1 Gran % (42.2 - 75.2 %) 75.9 H Lymphocytes % (20.5 - 51.1 %) 18.6 L Monocytes % (1.7 - 9.3 %) 4.8 Eosinophils % (0 - 5 %) 0.5 Basophils % (0.0 - 2.0 %) 0.2 Absolute Granulocytes (1.4 - 6.5 /CUMM) 7.6 H Absolute Lymphocytes (1.2 - 3.4 /CUMM) 1.9 Absolute Monocytes (0.10 - 0.60 /CUMM) 0.5 Absolute Eosinophils (0.0 - 0.7 /CUMM) 0.1 Absolute Basophils (0.0 - 0.2 /CUMM) 0
--- NOTE | 2017-08-31 08:58 | PN- Housestaff ---
Attila SALINAS,Yue 08/31/17 0858: Subjective Follow-up For: FAll Multiple fractures Subjective: Seen and examined. Anxious to be discharged home after the surgery. Patient's spouse as a physical therapist. They were offered PT evaluation however they declined and they're going to follow-up with the primary care doctor Review of Systems Constitutional: Reports: see HPI. Objective Last 24 Hrs of Vital Signs/I&O Vital Signs Date Time Temp Pulse Resp B/P B/P Pulse O2 O2 Flow FiO2 Mean Ox Delivery Rate 08/31 1311 98.0 78 18 122/68 100 Room Air Room Air / 1008 98.5 91 18 148/78 98 Room Air Room Air / 0700 98.2 86 20 132/73 99 Room Air / 2144 98.4 83 20 122/54 96 Room Air Intake & Output 08/31 1600 /04 0800 / 0000 Intake Total 1100 600 Output Total 400 200 500 Balance 700 400 -500 Intake, IV 300 600 Intake, Oral 800 Number 1 Bowel Movements Output, Urine 400 200 500 Physical Exam General Appearance: Alert, Oriented X3, Cooperative Cardiovascular: Regular Rate, Normal S1, Normal S2 Lungs: Clear to Auscultation, Normal Air Movement Abdomen: Normal Bowel Sounds, Soft, No Tenderness Neurological: Normal Speech Other Physical Findings: B?L feet wrapped in bandage Current Medications: Current Medications Sig/Mercedes Start time Last Medication Dose Route Stop Time Status Admin Acetaminophen 650 MG Q4P PRN 06/03 1300 DCD 06/03 PO 2028 Baclofen 10 MG 4 TIMES/DAY 06/ 0900 DCD 06 PO 1314 Bisacodyl 10 MG DAILY PRN 0602 2200 DCD 06 MD 0807 Cefazolin Sodium 1,000 MG IQ8 06/02 1600 DCD 06/04 IV 0748 Dextrose/Sodium 1,000 ML Q13H 06/04 0000 DC 06/04 Chloride IV 06/ 0159 0047 Heparin Sodium 5,000 UNIT Q8 06/ 2200 DCD 06 (Porcine) SC 1315 Insulin Aspart 0 TIDAC 06/ 1700 DC SC Insulin Aspart 0 TIDAC/HS / 1700 DCD SC Insulin Aspart 0 Q4 /04 0200 DC 08/31 SC 1012 Insulin Aspart 0 TIDAC 08/30 1800 DC 08/30 SC 08/30 2355 1749 Insulin Detemir 15 UNITS BID 08/31 2100 DC AK Insulin Detemir 13 UNITS BID 08/31 2100 DCD SC Insulin Detemir 8 UNITS ONCE ONE 08/31 0800 DC AK 08/31 0801 Insulin Detemir 15 UNITS BID 08/30 0900 GA 08/30 AK 08/30 2300 2028 Oxybutynin Chloride 5 MG 4 TIMES/DAY 08/30 0900 GAD 08/31 PO 131 Paroxetine HCl 10 MG QPM 08/29 2144 DC 08/30 PO 2027 Assessment/Plan Assessment: The patient is 52-year-old female with 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 She presented to [place] ED 09/16 with a complaint of fall. Vitals, within normal limits except elevated blood pressure CBC and BMP unremarkable Imaging finding positive for following fractures 1.Nondisplaced fracture involving the metadiaphysis, proximal aspect, of the proximal phalanx of the R great toe. 2.Mildly displaced comminuted fracture involving the mid to distal first right metatarsal. 3.There is irregularity of the medial and lateral cortices of the distal first metatarsal and proximal phalanx of the L great toe as described above, consistent with minimally displaced fractures. 4.Oblique fracture in the L upper tibial diaphysis which is suspected to extend into the metaphysis and possibly to the articular surface of the knee joint. 5.Suprapatellar joint effusion The patient wasadmitted to general medicine floor and was being treated and evaluated for above-mentioned fractured -Vitals every shift hemodynamically stable overnight -Adequate analgesia, pain well controlled -OR planned for today washout and closure. -IV antibiotics -Ortho recommend conservative management follow-up after discharge -Patient's spouse as a physical therapist. They were offered PT evaluation however they declined and they're going to follow-up with the primary care doctor, she will require Podaitry and Ortho follow up after discharge #DM, Pt is on insulin pump. She was maintained on insulin regimen as per recommendations. At discharge she can continue her #Continue home medications baclofen, Paxil, nitrofurantoin (chronically on to prevent UTIs), oxybutynin #Full Code/consistent carbohydrate diet/subcutaneous heparin for DVT prophylaxis alps will not be ordered in setting of fracture Problem List: 1. Bilateral great toe fractures 2. Left tibial fracture Pain Ratin Pain Location: as stated Pain Goal: Pain 4 or less Pain Plan: prn Tomorrow's Labs & Rationales: none Erika Wick MDcorriestorm 08/31/17 1420: Attending MD Review Statement Attending Statement Attending Statement: examined this patient, discuss w/resident/PA/CONTROL SUPERVISOR, agreed w/resident/PA/CONTROL SUPERVISOR, reviewed EMR data (avail), discussed with nursing, discussed with case mgmt, amended to note Attending Assessment/Plan: Patient wishes to return home today. She wishes to return back to [place]. She was taken to the OR by the podiatry service for incision and drainage of an open fracture to the right first metatarsal phalangeal joint. Procedure was completed with no reported complications. Postoperatively she is not complaining of any significant pain. On examination she does have swelling of the left knee. No open area over the knee. She does have bilateral intact dressings over the feet. She will be following up with orthopedic and podiatry service in [place]. Patient declined to be evaluated by the physical therapy service here at [facility]. Her spouse is a physical therapist and she will be following up with her primary care provider for initiation of formal physical therapy service when she gets back to the [facility]. She may resume her insulin pump once she gets home.
[2017-08-31 10:08] VITALS: BP 148/78
--- NOTE | 2017-08-31 10:43 | Patient Discharge Instructions ---
Discharge Instructions General Discharge Information You were seen/treated for: Nondisplaced fracture right great toe Mildly displaced comminuted fracture first right metatarsal Minimally displaced fracture left great toe Oblique fracture in the L upper tibial diaphysis You had these procedures: 1 open incision and drainage deep to the deep fascia with exposure of the flexor tendon and tendon sheath multiple sites right foot 2 closure of open laceration plantar right foot Special Instructions: -Please follow-up with your primary care after discharge -Please follow-up with the foot doctor after discharge. -Please keep dressing of Right foot intact until you see your primary care doctor. -The dressing on the left foot can come off after 1 week -Please follow-up with an orthopedic doctor after discharge in regards of tibial fracture. For now it should be conservatively managed, and should heal by itself -Please follow-up with your configuration developer after discharge -You have declined physical therapy evaluation and recommendations at this point , please follow-up with your primary care doctor for further assistance Diet Recommended Diet: Diabetic Activity Activity Self Limited: Yes Acute Coronary Syndrome Inclusion Criteria At DC or during hospital stay patient has or had the following: ACS DIAGNOSIS No Discharge Core Measures Meds if any: Prescribed or Continued at Discharge Meds if any: NOT Prescribed or Continued at Discharge Congestive Heart Failure Inclusion Criteria At DC or during hospital stay patient has or had the following: CHF DIAGNOSIS No Discharge Core Measures Meds if any: Prescribed or Continued at Discharge Meds if any: NOT Prescribed or Continued at Discharge Cerebrovascular accident Inclusion Criteria At DC or during hospital stay patient has or had the following: CVA/TIA Diagnosis No Discharge Core Measures Meds if any: Prescribed or Continued at Discharge Meds if any: NOT Prescribed or Continued at Discharge Venous thromboembolism Inclusion Criteria VTE Diagnosis No VTE Type NONE VTE Confirmed by (Test) NONE Discharge Core Measures - Per Current guidelines, there needs to be overlap - treatment for the first 5 days of Warfarin therapy. - If discharged on Warfarin prior to 5 days of - overlap therapy, the patient will need to be - assessed for post discharge needs including - *Post discharge parental anticoagulation - *Warfarin and/or parental anticoagulation education - *Follow up date to check INR post discharge At least 5 days overlap therapy as Inpatient No Meds if any: Prescribed or Continued at Discharge Note: Overlap Therapy is Warfarin and Anticoagulant Meds if any: NOT Prescribed or Continued at Discharge
[2017-08-31] MEDS ORDERED: NOVOLOG100 UNIT/2 SC (10:45)
--- NOTE | 2017-08-31 12:03 | Discharge Summary ---
Visit Information Visit Dates Admission Date: 08/29/17 Discharge Date: 08/31/2017 Hospital Course Course Attending Physician: Cheikh Wick MD Primary Care Physician: Unknown Hospital Course: The patient is 52-year-old female with past medical history of transverse colitis, Allergies: Coded Allergies: Penicillins (RXN AN 08/29/17) Discharge Instructions Medications at Discharge Discharge Medications: Continue taking these medications: Oxybutynin Chloride (Oxybutynin Chloride) 5 MG TABLET 1 Tablet ORAL TWICE DAILY Qty = 120 Comments: Last Taken: 08/31/17 Time: 1:15 PM Baclofen (Baclofen) 10 MG TABLET 1 Tablet ORAL THREE TIMES DAILY Qty = 120 Comments: Last Taken: 08/31/17 Time: 1:15 PM Nitrofurantoin Macrocrystal (Nitrofurantoin) 50 MG CAPSULE 1 Capsule ORAL DAILY Qty = 90 Comments: NOT GIVEN IN HOSPITAL Paroxetine HCl (Paroxetine HCl) 20 MG TABLET 1 Tablet ORAL DAILY Qty = 60 Comments: NOT GIVEN IN HOSPTIAL Insulin Aspart (Novolog) 100 UNIT/ML VIAL 0 Inject into fatty tissue DAILY Qty = 1 Instructions: VIA INSULIN PUMP Attending MD Review Statement Documenting Attending: Cheikh Wick MD Other Findings: Patient to follow-up with a podiatry and orthopedic service in [place]. She has been advised to seek medical attention immediately if she develops increasing swelling of the left knee, or worsening pain. She will be following up with her primary care provider for initiation of physical therapy services
--- NOTE | 2017-08-31 12:55 | Operative Report ---
Operative/Inv Procedure Report Surgery Date: 08/31/17 Name of Procedure: 1 open incision and drainage deep to the deep fascia with exposure of the flexor tendon and tendon sheath multiple sites right foot 2 closure of open laceration plantar right foot 3 intraoperative administration of ankle block anesthesia Pre-Operative Diagnosis: 1 open fracture right first metatarsophalangeal joint Post-Operative Diagnosis: The same Estimated Blood Loss: less than 50ml Surgeon/Rpg Programmer: AGUSTIN REILLY DPM Anesthesia: moderate sedation, block Operative/Procedure Note Note: After obtaining informed consent the patient was brought to the operating room and placed on the operating table in the supine position. The patient was then securely fastened to the operating table utilizing safety belt. After administration of IV sedation, 10 mL of 0.5% Marcaine plain was infiltrated about the patient's right ankle. The right foot and ankle within scrubbed prepped and draped in usual aseptic manner. Attention directed plantar aspect the right foot, where a laceration at the sulcus of the first metatarsal phalangeal joint was identified. The open wound was noted to involve the metatarsophalangeal joint. The flexor hallucis longus tendon was identified and noted to be intact. The wound edges were sharply revised with a 15 blade. The open wound was then curetted of any nonviable tissue or debris. The dissection was then carried down deep to the D fashion with exposure of the flexor tendon and tendon sheath multiple sites, both proximally and distally. All necrotic nonviable infected tissue sharply evacuated from the wound bed. The open wound was then irrigated with 3 L of normal sterile saline infusion 50,000 units of bacitracin. Next, the foot was redraped and the surgeon's top gloves were changed clean gloves. Any bleeding vessels identified were cauterized or ligated as encountered. The deep tissues were then mobilized with undermining, and advancement adjacent tissues. Centrally, the flap was held 3-0 Vicryl. Skin edges were then reapproximated with 3-0 nylon. Incision was dressed with Xeroform, 4 x 4's, Kerlix and an Abhay wrap. The patient was noted tolerate both procedure and anesthesia well and the patient was transported from the operating room to recovery via signs stable and fascia status intact to the plantar flap.
[2017-08-31 13:11] VITALS: BP 122/68
== END 2017-08-31 15:35 | DRG 501 ==
LOC: ERH 10:50 → 2NB 15:40 → ERHI 15:40 → ENRESERV 16:56 → ENTRNSPT 17:46 → EDTRNSPT 18:03 → EDTRNSPTSTS 18:20 → 2NB 18:31 → CMPTRNSPT 18:42 → 2NB 08-31 08:11 → ENTRNSPT 08-31 12:28 → EDTRNSPTSTS 08-31 12:48 → EDTRNSPT 08-31 12:48 → CMPTRNSPT 08-31 13:07 → 2NB 08-31 15:35
PROVIDERS: Student in an Organized Health Care Education/Training Program
PROC: 0YQP0ZZ Repair Right 1st Toe, Open Approach (ICD-10-PCS; principal; 2017-08-31)
PROC: 0J9Q0ZZ Drainage of Right Foot Subcutaneous Tissue and Fascia, Open Approach (ICD-10-PCS; 2017-08-31)
DX: S92.311B Displaced fracture of first metatarsal bone, right foot, initial encounter for open fracture (principal); G37.3 Acute transverse myelitis in demyelinating disease of central nervous system; K59.2 Neurogenic bowel, not elsewhere classified; S82.142A Displaced bicondylar fracture of left tibia, initial encounter for closed fracture; Z79.4 Long term (current) use of insulin; Z96.41 Presence of insulin pump (external) (internal); W18.39XA Other fall on same level, initial encounter; Y93.E1 Activity, personal bathing and showering; N31.9 Neuromuscular dysfunction of bladder, unspecified; E10.319 Type 1 diabetes mellitus with unspecified diabetic retinopathy without macular edema; S92.402A Displaced unspecified fracture of left great toe, initial encounter for closed fracture; Z99.3 Dependence on wheelchair; G83.89 Other specified paralytic syndromes; M25.462 Effusion, left knee; M85.80 Other specified disorders of bone density and structure, unspecified site; R33.9 Retention of urine, unspecified
CPT/HCPCS: 2NBSP; 36592; 73562-LT; 73600-LT; 73630-LT; 73630-RT; 82436; 90714; 93005; 93010; 96374; J0131; J0690; J1644; J2001; J7042